=== PATIENT | male | born 1990 | race Caucasian/White ===

== ENCOUNTER 2019-06-23 16:58 | Emergency (ER) | payer BC, OTHER ==
[2019-06-23 17:13] VITALS: BP 136/75; PULSE 79; RESP 20; TEMP 98.1
--- NOTE | 2019-06-23 17:59 | XR ---
EXAMINATION TYPE: XR foot complete RT DATE OF EXAM: 06/23/2019 COMPARISON: NONE HISTORY: Foot pain TECHNIQUE: 3 views FINDINGS: Metatarsals are intact. I see no fracture nor dislocation. There are no erosions. Joint spa alon are normal. IMPRESSION: Negative right foot exam.
--- NOTE | 2019-06-23 18:08 | ED ---
General Adult HPI - General Chief complaint: Extremity Injury, Lower Stated complaint: [facility] - rt foot injury Time Seen by Provider: 06/23/19 17:18 Source: patient, RN notes reviewed, old records reviewed Mode of arrival: wheelchair Limitations: no limitations - History of Present Illness Initial comments: 29-year-old male patient presents ED chief complaint of right foot injury. Patient reports that he was at work when a trailer was partially lowered on the dorsal aspect of his right foot. Patient reports he was wearing shoes at the time. The full weight of the trailer was not on the foot. Patient reports that he has a mild amount of pain on the dorsal aspect of his foot. Denies any other injury. Denies any other complaints. Systemic: Pt denies fatigue, fever/chills, rash. Pt denies weakness, night sweats, weight loss. Neuro: Pt denies headache, visual disturbances, syncope or pre-syncope. HEENT: Pt denies ocular discharge or irritation, otalgia, rhinorrhea, pharyngitis or notable lymphadenopathy. Cardiopulmonary: Pt denies chest pain, SOB, heart palpitations, dyspnea on exertion. Abdominal/GI: Pt denies abdominal pain, n/v/d. : Pt denies dysuria, burning w/ urination, frequency/urgency. Denies new onset urinary or bowel incontinence. MSK: Pt denies myalgia, loss of strength or function in extremities. Neuro: Pt denies new onset weakness, paresthesias. - Related Data Allergies Allergy/AdvReac Type Severity Reaction Status Date / Time No Known Allergies Allergy Verified 06/23/19 17:13 Review of Systems ROS Statement: Those systems with pertinent positive or pertinent negative responses have been documented in the HPI. ROS Other: All systems not noted in ROS Statement are negative. Past Medical History Past Medical History: No Reported History History of Any Multi-Drug Resistant Organisms: None Reported Past Surgical History: No Surgical Hx Reported Past Psychological History: Anxiety Smoking Status: Never smoker Past Alcohol Use History: Occasional Past Drug Use History: None Reported General Exam - General Exam Comments Initial Comments: Constitutional: NAD, AOX3, Pt has pleasant affect. HEENT: NC/AT, trachea midline, neck supple, no lymphadenopathy. Posterior pharynx non erythematous, without exudates. External ears appear normal, without discharge. Mucous membranes moist. Eyes PERRLA, EOM intact. There is no scleral icterus. No pallor noted. Cardiopulmonary: RRR, no murmurs, rubs or gallops, no JVD noted. Lungs CTAB in anterior and posterior hemphill. No peripheral edema. Abdominal exam: Abdomen soft and non-distended. Abdomen non-tender to palpation in all 4 quadrants. Bowel sounds active in LLQ. No hepatosplenomegaly. No ecchymosis Neuro: CN II-XII grossly intact. No nuchal rigidity. No raccon eyes, no villarreal sign, no hemotympanum. No cervical spinal tenderness. MSK: Tenderness to palpation dorsal aspect of right foot, medial aspect. No skin changes. No posterior calf tenderness bilaterally, homans sign negative bilaterally. Posterior tibialis and radial pulse +2 bilaterally. Sensation intact in upper and lower extremities. Full active ROM in upper and lower extremities, 5/5 stregnth. Limitations: no limitations Course Vital Signs 06/23/19 17:09 Temperature 98.1 F Pulse Rate 79 Respiratory 20 Rate Blood Pressure 136/75 O2 Sat by Pulse 100 Oximetry Medical Decision Making - Medical Decision Making 29-year-old male patient presents to ED chief complaint of what foot after a trailer was partially lowered onto his foot. Patient vital signs are stable, afebrile. Physical exam displayed dorsal aspect. Mildly tender to palpation dorsal medial aspect.. Compartments are soft. Neurovascular intact. No skin changes. Plain films are negative. Placed in a postop walking shoe. Advised to use crutches, bear weight only as tolerated. Patient discharged will follow up with primary care provider will return to ER if condition worsens. Case discussed with dr. andrade. Disposition Clinical Impression: Foot contusion Disposition: HOME SELF-CARE Condition: Stable Instructions (If sedation given, give patient instructions): Foot Contusion (ED) Additional Instructions: Follow-up with primary care provider tomorrow. Return to ER if condition worsens. Is patient prescribed a controlled substance at d/c from ED?: No Referrals: None,Stated [Primary Care Provider] - 1-2 days [facility] [NON-STAFF] - 1-2 days Drew Galindo MD [STAFF PHYSICIAN] - 1-2 days
--- NOTE | 2019-06-23 18:29 | ED ---
Disposition Clinical Impression: Foot contusion Disposition: HOME SELF-CARE Condition: Stable Instructions (If sedation given, give patient instructions): Foot Contusion (ED) Additional Instructions: Follow-up with primary care provider tomorrow. Return to ER if condition worsens. Use crutches if unable to bear weight, if able to tolerate walking mild weight bearing is okay. Follow up with orthopedic consult symptoms persist. Is patient prescribed a controlled substance at d/c from ED?: No Referrals: None,Stated [Primary Care Provider] - 1-2 days [facility] [NON-STAFF] - 1-2 days Drew Galindo MD [STAFF PHYSICIAN] - 1-2 days
[2019-06-23] MEDS ORDERED: ACET/COD 300 MG/30 MG STARTER PACK 6 TAB BTL PO STA (18:33)
== END 2019-06-23 18:28 | disposition home or self-care (01) ==
LOC: EC 16:58
DX: S90.31XA Contusion of right foot, initial encounter (principal); W20.8XXA Other cause of strike by thrown, projected or falling object, initial encounter; Y93.89 Activity, other specified; Y92.69 Other specified industrial and construction area as the place of occurrence of the external cause; Y99.0 Civilian activity done for income or pay
CPT/HCPCS: 99284

== ENCOUNTER → 2019-06-30 | Outpatient (CLI) | payer OTHER ==
--- NOTE | 2019-06-30 12:20 | XR ---
EXAMINATION TYPE: XR foot complete RT DATE OF EXAM: 06/30/2019 CLINICAL HISTORY: Injury 7 days ago with persistent pain TECHNIQUE: Frontal, lateral, and oblique images of the right foot are obtained. COMPARISON: Right foot x-ray one week ago. FINDINGS: There is no acute fracture/dislocation evident in the right foot. The joint spaces in the right foot appear within normal limits. Accessory ossicle medial base of navicular bone redemonstrat ed. The overlying soft tissue appears unremarkable. IMPRESSION: There is no acute fracture or dislocation in the right foot. No significant change from prior.
== END | disposition home or self-care (01) ==
LOC: RADXRMAIN 12:06
PROVIDERS: ATTEND Emergency Medicine
DX: S90.31XA Contusion of right foot, initial encounter (principal)

== ENCOUNTER → 2019-07-14 | Outpatient (CLI) | payer BC, OTHER ==
--- NOTE | 2019-07-14 08:46 | MR ---
MRI right foot HISTORY: Contusion, pain Multiplanar multisequence imaging through the right foot correlated to plain film 06/30/2019 There is abnormal intermediate signal on T1, increased signal on T2 weighted sequences involving the distal calcaneus near its articulation with the cuboid, the cuboid bone, cuneiform bones, proximal se cond, third metatarsals. The cuboid shows linear low signal on T1 consistent with nondisplaced fractu re, increased signal on T2. There is some increased signal along the mohsen hepatis brevis tendon sugg estive of contusion. Longus and brevis tendons thought to be intact as are the posterior tibial tendo n, flexor hallucis longus tendon and flexor digitorum tendon. Dorsum of the foot shows subcutaneous e tereza changes. Extensor tendons thought to be intact. At the volar aspect of the medial cuneiform and additional minimally displaced fracture is suspected, linear low signal is present on T1 and T2-weigh gil sequences. Lisfranc ligament is thought to be intact but is not well seen. IMPRESSION: Fractures of the mid foot, bone contusions. There is associated soft tissue swelling. Bud e limitations to the exam. CT of the foot is suggested.
== END | disposition home or self-care (01) ==
LOC: RADMRIMAIN 06:03
PROVIDERS: ATTEND Emergency Medicine
DX: S90.31XD Contusion of right foot, subsequent encounter (principal)

== ENCOUNTER → 2019-07-21 | Outpatient (CLI) | payer OTHER ==
--- NOTE | 2019-07-21 16:25 | CT ---
EXAMINATION TYPE: CT foot RT wo con DATE OF EXAM: 07/21/2019 COMPARISON: Foot x-ray 06/30/2019 HISTORY: right foot pain following crushing injury CT DLP: 245 mGycm Automated exposure control for dose reduction was used. Unenhanced CT of the right foot was the coron al axial and sagittal. Bone and soft tissue window settings are reviewed. FINDINGS: There is comminuted fracture noted to involve the first cuneiform with intra-articular extension. The re is a small chip fracture noted at the base of the second metatarsal. There is fracture noted to in volve the plantar aspect of the second cuneiform with mild comminution seen. There is also fracture n oted to involve the third cuneiform at its plantar aspect. First intermetatarsal space measures 3.6 m m. There is additional fracture noted to involve the tarsal navicular with displacement of 1 mm. Mild comminution is noted IMPRESSION: MULTIPLE FRACTURES OF THE MIDFOOT DISCUSSED ABOVE.
== END ==
LOC: RADCTMAIN 15:27
PROVIDERS: ATTEND Orthopaedic Surgery
DX: S92.811A Other fracture of right foot, initial encounter for closed fracture (principal)

== ENCOUNTER → 2022-08-02 | Outpatient (CLI) | payer BC ==
--- NOTE | 2022-08-02 16:54 | P.SLEEP ---
History of Present Illness DATE: 08/02/2022 CONSULTATION/NEW PATIENT EVALUATION HISTORY OF PRESENT ILLNESS/SLEEP-WAKE EVALUATION: 32-year-old gentleman had been evaluated in the sleep center for possible obstructive sleep apnea hypopnea syndrome. SLEEP SCHEDULE: Usually sleep schedule from 9-11 PM until 6- 7 AM on working days and from 10-12 until 9-10 AM on weekend. FALLING ASLEEP: No problems with falling asleep, although there is a TV in bedroom. DURING SLEEP: Patient has loud snoring and witnessed episodes of stop breathing during the sleep by his . Positive history of multiple awakenings from sleep with up to 2 episodes of nocturia per night. No history of hypnogogical hallucinations, sleep paralysis, or cataplexy. DURING THE DAY/WAKE STATE: In the morning patient wake up tired, has episodes of irritability. [place] sleepiness scale is 3. Patient takes 1 nap at afternoon. PAST MEDICAL HISTORY: Anxiety. PAST SURGICAL HISTORY: None. MEDICATIONS: Xanax. SOCIAL HISTORY: Negative for smoking, alcohol consumption occasional. FAMILY HISTORY: Hypertension, sleep apnea, diabetes. REVIEW OF SYSTEMS: Loud snoring, multiple awakenings from sleep. No fevers. No double vision. No recent chest pain. No shortness of breath. No abdominal pain. No bleeding episodes. No blood in urine. No seizure episodes. PHYSICAL EXAMINATION: GENERAL: A pleasant patient without any distress. VITAL SIGNS: BP 138/87, HR 98, RR 18, weight 265.4 pounds, height 6 foot 4-7/8 inches, body mass index 31.6. HEENT: PERRLA, EOMI. Evaluation of oropharynx showed tongue protrudes midline, wide pillars, small oropharyngeal airspace []. NECK: Supple. No JVD. Thyroid is not palpable. 17 and to third inches in circumference. LUNGS: Clear to percussion and to auscultation. Good air exchange. No wheezing or rhonchi. HEART: S1, S2 regular. No murmurs, gallops or rubs. ABDOMEN: Soft and nontender. Bowel sounds are present. No organomegaly apprecia gil. EXTREMITIES: No clubbing or cyanosis. [employer]: Awake, alert, and oriented x3. Cranial nerves 2 to 7 intact. There is no fasciculation or atrophy noted. No focal deficits observed. ASSESSMENT: 1. Loud snoring, witnessed sleep apneas, small oropharyngeal airspace, wide neck 17 and to third inches in circumference, sleepiness taken naps afternoon. Obstructive sleep apnea hypopnea syndrome 2. Anxiety. 3. Mild obesity. PLAN: 1. Home sleep apnea test for evaluation of patient's breathing during sleep. 2. CPAP/BiPAP titration if sleep study confirms obstructive sleep apnea- hypopnea syndrome. 3. Preferable position during sleep on the side. 4. No driving if patient feels any sleepiness. Patient is aware of civil and criminal liability for unsafe driving. 5. Sleep hygiene with regular sleep time for at least 7.5-8 hours. 6. Watching weight. Thank you very much for referring this patient for consultation. Sincerely, Ramses Ferraro MD, PhD, FAASM. Diplomat of [place] [employer], Sleep Medicine Board by [place] [employer] [place] [employer] Trim Carpenter of [facility] [place] Past Medical History Past Medical History: No Reported History History of Any Multi-Drug Resistant Organisms: None Reported Past Surgical History: No Surgical Hx Reported Past Psychological History: Anxiety Past Alcohol Use History: Occasional Past Drug Use History: None Reported Medications and Allergies Allergies Allergy/AdvReac Type Severity Reaction Status Date / Time No Known Allergies Allergy Verified 06/23/19 17:13 Sleep Note - Sleep Note Sleep Note: Temperature: Pulse Rate: Respiratory Rate: Blood Pressure: SpO2: Height: Weight: BMI: Neck Circumference:
== END ==
LOC: SLEEP 16:17
PROVIDERS: ATTEND Internal Medicine
DX: G47.33 Obstructive sleep apnea (adult) (pediatric) (principal); E66.9 Obesity, unspecified; F41.9 Anxiety disorder, unspecified
CPT/HCPCS: 99202